=== PATIENT | male | born 1990 | race Caucasian/White ===

== ENCOUNTER 2017-02-01 16:30 | Emergency (ER) | payer MEDICAID, OTHER ==
[~2017-02-01] VITALS: Wt 75.0 kg
[2017-02-01 17:53] LABS: URINE BLOOD (Dip) POC Negative (NEGATIVE)
[2017-02-01] MEDS ORDERED: CIPR500T4 PO (18:03)
--- NOTE | 2017-02-01 18:07 | ERD ---
ER Documentation Chief Complaint Chief Complaint l. sided abd pain HPI 27-year-old male is here complaining of left lower abdominal pain that he has had for 3 weeks that is intermittent. Denies any fever, nausea, vomiting, or diarrhea. Pain is dull and achy and nonradiating. He does however admit to dysuria and increased urinary frequency as well as occasional hematuria. ROS All systems reviewed and are negative except as per history of present illness. Medications Home Meds Active Scripts Ciprofloxacin Hcl* (Ciprofloxacin Hcl*) 500 Mg Tablet, 500 MG PO BID for 5 Days , TAB Prov:MACKENZIE ARNETT PA-C 02/01/17 PMhx/Soc Medical and Surgical Hx: pt denies Medical Hx, pt denies Surgical Hx Hx Alcohol Use: No Hx Substance Use: No Smoking Status: Never smoker FmHx Family History: No diabetes Physical Exam Vitals Vital Signs Date Time Temp Pulse Resp B/P Pulse Ox O2 Delivery O2 Flow Rate FiO2 02/01/17 16:41 99.3 70 20 148/89 98 Physical Exam INITIAL VITAL SIGNS: Reviewed by me GENERAL: Awake, alert and oriented x 4, well appearing, nontoxic, speaking in full sentences. No acute distress . RESPIRATORY: Clear to auscultation bilaterally. Symmetric chest wall rise. No wheezing or rales. No accessory muscle use. CV: Regular rate and rhythm. No murmurs, rubs, or gallops. ABDOMEN: Soft, non-distended. Nontender. Negative [place]. Negative McBurneys point tenderness. No CVA tenderness bilaterally. No guarding. No rebound. : Deffered. Results 24 hrs Laboratory Tests Test 02/01/17 17:52 Bedside Urine pH (LAB) 6.0 Bedside Urine Protein (LAB) Negative Bedside Urine Glucose (UA) Negative Bedside Urine Ketones (LAB) Negative Bedside Urine Blood Negative Bedside Urine Nitrite (LAB) Negative Bedside Urine Leukocyte Esterase (L Negative Procedures/MDM 27-year-old male who presents with left lower abdominal pain that is associated with dysuria and frequency. The differential diagnosis includes but is not limited to appendicitis, cholelithiasis, cholecystitis, pancreatitis, hepatitis , gastritis, peptic ulcer disease, bowel obstruction, diverticulitis, renal disease including stones, torsion, AAA, pyelonephritis, and others. Blood pressure elevated 148/89 otherwise vital signs within normal limits. His exam is normal he has no tenderness throughout his abdomen including on the left side where he has pain. Urine dip was negative although he is symptomatic to auscultation with Keflex. Patient counseled regarding my diagnostic impression and care plan. Prior to discharge all questions answered. Pt agrees with treatment plan and understands strict return precautions. Pt is instructed to follow up with primary care provider within 24-48 hours. Precautionary instructions provided including instructions to return to the ER if not improving or for any worsening or changing symptoms or concerns. Departure Diagnosis: Primary Impression: Dysuria Additional Impression: Abdominal pain Condition: Stable Patient Instructions: Dysuria Additional Instructions: Llame al doctor MAANA y juliano reza MAGDI PARA DENTRO DE 1-2 LUGO.Dgale a la secretaria que nosotros le instruimos hacer esta magdi.Avise o llame si mosley condicin se empeora antes de la magdi. Regresa aqui si peor o no mejor. MACKENZIE ARNETT PA-C Feb 01, 2017 18:07
== END 2017-02-01 20:15 | disposition home or self-care (01) ==
LOC: FTE 16:30
DX: R30.0 Dysuria (principal)
CPT/HCPCS: 81003; 82962; Z7502; 99283